=== PATIENT | female | born 1970 | race Two or more races ===

== ENCOUNTER 2018-02-04 05:36 | Inpatient (IN) | payer OTHER ==
[~2018-02-04] VITALS: Ht 160 cm; Wt 81.6 kg
[~2018-02-04 05:36] MED LIST: ADVAIR 5001 DISK W/1 IH; ASMANEX110 MCG IH; BREO ELLIPTA I1 EACH; LEVAQUIN750 MG PO; SINGULAIR10 MG PO; SYMBICORT 16010.2 GM; SYMBICORT 16010.2 GM PO; TUDORZA PRESS400 MCG; TUSSIN15 MG/5 M1; XOPENEX HFA15 GM IH; XOPENEX0.63 MG/3 IH
[2018-02-08] MEDS ORDERED: TUDORZA PRESS400 MCG IH (19:52)
[2018-02-08] MEDS ORDERED: MEDROLPACK PO (19:52)
[2018-02-08] MEDS ORDERED: BREO ELLIPTA I1 EACH IH (19:52)
== END 2018-02-08 20:14 | DRG 203 ==
LOC: ER 05:36 → MEDI 18:47 → SEC-K 18:47 → MEDI 02-05 01:02
PROC: 4A033R1 Measurement of Arterial Saturation, Peripheral, Percutaneous Approach (ICD-10-PCS; principal; 2018-02-04)
PROC: 3E0F7GC Introduction of Other Therapeutic Substance into Respiratory Tract, Via Natural or Artificial Opening (ICD-10-PCS; 2018-02-04)
DX: J45.41 Moderate persistent asthma with (acute) exacerbation (principal); J20.9 Acute bronchitis, unspecified

== ENCOUNTER 2018-07-26 11:32 | Inpatient (IN) | payer OTHER ==
[~2018-07-26] VITALS: Ht 160 cm; Wt 81.6 kg
[~2018-07-26 11:32] MED LIST changes: +BREO ELLIPTA I1 EACH IH; +MEDROLPACK PO; +TUDORZA PRESS400 MCG IH
[2018-07-30] MEDS ORDERED: TUDORZA PRESS400 MCG IH ×2 (17:30)
[2018-07-30] MEDS ORDERED: ALBUTEROL0.63 MG/3 IH (17:30)
[2018-07-30] MEDS ORDERED: SINGULAIR 10MG10 MG PO (17:30)
[2018-07-30] MEDS ORDERED: IPRAT-ALBUT 0.5-3 ML IH (17:30)
[2018-07-30] MEDS ORDERED: XOPENEX0.63 MG/3 IH (17:30)
[2018-07-30] MEDS ORDERED: BREO ELLIPTA 21 EACH IH (17:30)
[2018-07-30] MEDS ORDERED: BREO ELLIPTA I1 EACH IH (17:30)
== END 2018-07-30 17:53 | disposition home or self-care (01) | DRG 203 ==
LOC: ER 11:32 → MEDJ 18:47 → SEC-K 18:47 → MEDJ 07-27 06:40
PROC: 4A033R1 Measurement of Arterial Saturation, Peripheral, Percutaneous Approach (ICD-10-PCS; principal; 2018-07-26)
PROC: 3E0F7GC Introduction of Other Therapeutic Substance into Respiratory Tract, Via Natural or Artificial Opening (ICD-10-PCS; 2018-07-26)
DX: J45.52 Severe persistent asthma with status asthmaticus (principal); E87.6 Hypokalemia; J20.9 Acute bronchitis, unspecified; E09.65 Drug or chemical induced diabetes mellitus with hyperglycemia; T38.0X5A Adverse effect of glucocorticoids and synthetic analogues, initial encounter

== ENCOUNTER 2019-03-03 07:33 | Inpatient (IN) | payer OTHER ==
[~2019-03-03] VITALS: Ht 91.4 cm; Wt 5.0 kg
[~2019-03-03 07:33] MED LIST changes: +ALBUTEROL0.63 MG/3 IH; +BREO ELLIPTA 21 EACH IH; +IPRAT-ALBUT 0.5-3 ML IH; +SINGULAIR 10MG10 MG PO
[2019-03-03] MEDS ORDERED: TRELEGY ELLIPT1 EACH (08:04)
[2019-03-05] MEDS ORDERED: XOPENEX HFA15 GM IH (12:12)
[2019-03-05] MEDS ORDERED: ZITHROMAX TRI-500 MG PO (12:13)
[2019-03-05] MEDS ORDERED: TRELEGY ELLIPT1 EACH IH (12:14)
== END 2019-03-05 13:09 | disposition home or self-care (01) | DRG 203 ==
LOC: ER 07:33 → MEDI 18:14 → MEDJ 18:14 → MEDI 03-05 13:09
PROVIDERS: ADMIT Student in an Organized Health Care Education/Training Program
PROC: 4A033R1 Measurement of Arterial Saturation, Peripheral, Percutaneous Approach (ICD-10-PCS; principal; 2019-03-03)
PROC: 3E0F7GC Introduction of Other Therapeutic Substance into Respiratory Tract, Via Natural or Artificial Opening (ICD-10-PCS; 2019-03-03)
DX: J45.51 Severe persistent asthma with (acute) exacerbation (principal); J45.52 Severe persistent asthma with status asthmaticus

== ENCOUNTER 2019-07-29 07:04 | Inpatient (IN) | payer OTHER ==
[~2019-07-29] VITALS: Ht 162.6 cm; Wt 72.6 kg
[~2019-07-29 07:04] MED LIST changes: +TRELEGY ELLIPT1 EACH; +TRELEGY ELLIPT1 EACH IH; +ZITHROMAX TRI-500 MG PO
--- NOTE | 2019-07-29 07:14 | NUR ---
SE RECIBE PTE ALERTA Y ORIENTADA [id number] TENER ASMA LE COMENZO EN LA MANANA DE HOY ,ESTA RESPIRANDO CON DIFICULTAD .
--- NOTE | 2019-07-29 07:54 | NUR ---
MRS PRITCHARD ORIENTA A PT SOBRE ORDENES MEDICAS LA CUAL REFIERE ENTENDER. LE COLECTA MUESTRAS Y LA CANALIZA BAJO MEDIDAS ASEPTICAS. LE ADMINISTRA MEDICAMENTOS EARNESTINE ORDEN PT TOLERA. SE NOTIFICA ABG Y TERAPIAS A PERSONAL DE TERAPIA RESPIRATORIA.
[2019-08-01] MEDS ORDERED: MEDROLPACK PO (08:53)
== END 2019-08-01 10:39 | disposition home or self-care (01) | DRG 203 ==
LOC: ER 07:04 → MEDJ 13:22
PROVIDERS: ADMIT Student in an Organized Health Care Education/Training Program
PROC: 3E0F7GC Introduction of Other Therapeutic Substance into Respiratory Tract, Via Natural or Artificial Opening (ICD-10-PCS; principal; 2019-07-29)
PROC: 4A033R1 Measurement of Arterial Saturation, Peripheral, Percutaneous Approach (ICD-10-PCS; 2019-07-29)
DX: J45.52 Severe persistent asthma with status asthmaticus (principal)

== ENCOUNTER 2020-03-15 17:04 | Emergency (ER) | payer OTHER ==
[~2020-03-15] VITALS: Ht 160 cm; Wt 83.9 kg
== END 2020-03-15 19:58 | disposition home or self-care (01) ==
LOC: ER 17:04
DX: B34.9 Viral infection, unspecified (principal)

== ENCOUNTER 2020-05-23 12:39 | Inpatient (IN) | payer OTHER ==
[~2020-05-23] VITALS: Ht 99.1 cm; Wt 86.2 kg
[2020-05-23] MEDS ORDERED: [UNRECOGNIZED DRUG - OTHER] (13:30)
--- NOTE | 2020-05-23 13:31 | NUR ---
SE RECIBE PTE. FEMENINA ALERTA CONCIENTE Y ORIENTADA QUE REFIERE ATAQUE DE ASMA. SE PASA A AREA DE ASMA. TRANG. SAM EVALUA Y OSCULTA PTE.
--- NOTE | 2020-05-23 14:21 | NUR ---
PACIENTE ALERTA Y ORIENTADA EN ALESSIO SATHYA ESFERAS. SE ORIENTA A PACIENTE SOBRE PROCEDIMIENTO Y TX, REFIERE ENTENDER. SE EXTRAE MUESTRAS DE LABORATORIO CON MEDIDAS ASEPTICAS Y SE ADMINISTRA MEDICAMENTOS EARNESTINE ORDEN MEDICA. SE NOTIFICA A PERSONAL DE TERAPIA RESPIRATORIA, MS. JIMENEZ
--- NOTE | 2020-05-23 16:24 | NUR ---
SE RECIB PTE ALERTA Y ORIENTADA X 3 ESFERAS EN LA UNIDAD DE ASMA. H/L FLY DE EDEMA Y ERITEMA. SE ORIENTA A PTE SOBRE TX MEDICO. PTE REFIERE COMPRENDER. SE COLECTAN MUESTRAS DE LABORATORIO BAJO MEDIDAS ASEPTICAS. PENDIENTE RE-EVALUACION MEDICA.
--- NOTE | 2020-05-24 01:47 | NUR ---
PATIENT FROM PREVIOUS SHIFT ALERT AND ORIENTED X3 WITH SIGNSS OF DISTRESS. BED RAILS ELEVATED AND HEADREST AT 30 DEGREE, CATHETER IV FREE OF EDEMA AND ERYTHEMA IN SALINE LOCK. STABLE PATIENT UNDERS CONTINUOUS OBSERVATION.
--- NOTE | 2020-05-24 07:41 | NUR ---
PACIENTE ALERTA Y ORIENTADA POR SATHYA ESFERAS EN SOPHIA. SE OBSERVA IVF'S PATTENTE FLY DE EDEMA Y ENROJECIMIENTO. PACIENTE CON BUEN PATRON RESPIRATORIO. PENDIENTE CONSULTA CON DR. CUEVA.
== END 2020-05-26 11:28 | disposition home or self-care (01) | DRG 203 ==
LOC: ER 12:39 → MEDJ 05-24 08:00
PROVIDERS: ADMIT Internal Medicine; ATTEND Internal Medicine
PROC: 3E0F7GC Introduction of Other Therapeutic Substance into Respiratory Tract, Via Natural or Artificial Opening (ICD-10-PCS; principal; 2020-05-24)
DX: J45.52 Severe persistent asthma with status asthmaticus (principal); J06.9 Acute upper respiratory infection, unspecified

== ENCOUNTER 2020-11-08 12:57 | Inpatient (IN) | payer OTHER ==
[~2020-11-08] VITALS: Ht 160 cm; Wt 81.6 kg
[~2020-11-08 12:57] MED LIST changes: +[UNRECOGNIZED DRUG - OTHER]
== END 2020-11-14 12:17 | disposition home or self-care (01) | DRG 203 ==
LOC: ER 12:57 → ICU-2 18:05 → MEDI 11-10 14:25 → SEC-K 11-10 19:50 → MEDI 11-10 19:51 → MEDJ 11-12 22:22
PROVIDERS: ADMIT Internal Medicine; ATTEND Internal Medicine
PROC: 4A033R1 Measurement of Arterial Saturation, Peripheral, Percutaneous Approach (ICD-10-PCS; principal; 2020-11-08)
PROC: 3E0F7SF Introduction of Other Gas into Respiratory Tract, Via Natural or Artificial Opening (ICD-10-PCS; 2020-11-08)
PROC: 3E0F7GC Introduction of Other Therapeutic Substance into Respiratory Tract, Via Natural or Artificial Opening (ICD-10-PCS; 2020-11-08)
PROC: 4A12X4Z Monitoring of Cardiac Electrical Activity, External Approach (ICD-10-PCS; 2020-11-10)
DX: J45.52 Severe persistent asthma with status asthmaticus (principal); R09.02 Hypoxemia; R06.89 Other abnormalities of breathing; Z20.828 Contact with and (suspected) exposure to other viral communicable diseases

== ENCOUNTER 2021-06-20 06:40 | Emergency (ER) | payer OTHER ==
[~2021-06-20] VITALS: Ht 160 cm; Wt 81.6 kg
== END 2021-06-20 15:19 | disposition home or self-care (01) ==
LOC: ER 06:40
DX: J45.902 Unspecified asthma with status asthmaticus (principal)

== ENCOUNTER 2021-10-10 07:51 | Emergency (ER) | payer OTHER ==
[~2021-10-10] VITALS: Ht 160 cm; Wt 79.4 kg
[2021-10-10] MEDS ORDERED: MEDROLPACK (08:26)
== END 2021-10-10 13:10 | disposition home or self-care (01) ==
LOC: ER 07:51
DX: J06.9 Acute upper respiratory infection, unspecified (principal); Z03.818 Encounter for observation for suspected exposure to other biological agents ruled out

== ENCOUNTER 2022-02-21 07:28 | Emergency (ER) | payer OTHER ==
[~2022-02-21] VITALS: Ht 160 cm; Wt 79.4 kg
[~2022-02-21 07:28] MED LIST changes: +MEDROLPACK
[2022-02-21] MEDS ORDERED: KENALOG100 GM (07:38)
== END 2022-02-21 11:17 | disposition home or self-care (01) ==
LOC: ER 07:28
DX: J45.51 Severe persistent asthma with (acute) exacerbation (principal); Z20.822 Contact with and (suspected) exposure to COVID-19

== ENCOUNTER 2022-06-04 14:06 | Emergency (ER) | payer OTHER ==
[~2022-06-04] VITALS: Ht 160 cm; Wt 77.1 kg
[~2022-06-04 14:06] MED LIST changes: +KENALOG100 GM
[2022-06-04] MEDS ORDERED: IPRAT-ALBUT 0.5-3 ML IH (23:13)
[2022-06-04] MEDS ORDERED: MEDROLPACK PO (23:13)
[2022-06-04] MEDS ORDERED: TUSICOF LIQUID120 ML PO (23:13)
[2022-06-04] MEDS ORDERED: ZITHROMAX500 MG PO (23:14)
== END 2022-06-04 23:48 | disposition home or self-care (01) ==
LOC: ER 14:06
DX: J45.901 Unspecified asthma with (acute) exacerbation (principal); Z20.822 Contact with and (suspected) exposure to COVID-19

== ENCOUNTER 2022-09-02 07:51 | Emergency (ER) | payer OTHER ==
[~2022-09-02] VITALS: Ht 160 cm; Wt 79.8 kg
[~2022-09-02 07:51] MED LIST changes: +TUSICOF LIQUID120 ML PO; +ZITHROMAX500 MG PO
== END 2022-09-02 12:40 | disposition home or self-care (01) ==
LOC: ER 07:51
DX: J45.901 Unspecified asthma with (acute) exacerbation (principal); Z20.822 Contact with and (suspected) exposure to COVID-19

== ENCOUNTER 2023-05-03 14:47 | Inpatient (IN) | payer OTHER ==
[~2023-05-03] VITALS: Ht 160 cm; Wt 81.6 kg
[2023-05-03] MEDS ORDERED: SINGULAIR10 MG PO (15:23)
--- NOTE | 2023-05-03 15:23 | NUR ---
PTE SE OBSERVA A/O X4. PTE VERBALIZA QUE DESDE HOY LLEVA CON ASMA Y SE OBSERVA CON SIBILANCIA AL AUSCULTAR PULMONES.
--- NOTE | 2023-05-03 16:39 | NUR ---
PTE EVALUADO POR DR. MONTGOMERY SE EJECUTA ORDEN MEDICA Y SE RUPAL MUESTRA BAJO MEDIDAS ASEPTICAS, SE ORIENTA PTE REFIERE ENTENDER
--- NOTE | 2023-05-03 19:08 | NUR ---
SE NOTIFICA TERAPIAS RESPIRATORIAS Y PEAK FLOW A BROOKS.
[2023-05-09] MEDS ORDERED: XOPENEX0.63 MG/3 IH (17:02)
[2023-05-09] MEDS ORDERED: MEDROLPACK PO (17:02)
== END 2023-05-09 17:14 | disposition home or self-care (01) | DRG 202 ==
LOC: ER 14:47 → MEDI 20:36 → ICU-2 20:36 → MEDJ 05-04 10:28 → MEDI 05-04 10:57
PROVIDERS: ADMIT Internal Medicine; ATTEND Internal Medicine
PROC: BW24ZZZ Computerized Tomography (CT Scan) of Chest and Abdomen (ICD-10-PCS; principal; 2023-05-03)
PROC: 3E0F7GC Introduction of Other Therapeutic Substance into Respiratory Tract, Via Natural or Artificial Opening (ICD-10-PCS; 2023-05-03)
DX: J45.901 Unspecified asthma with (acute) exacerbation (principal); E87.20 Acidosis, unspecified; N39.0 Urinary tract infection, site not specified; J06.9 Acute upper respiratory infection, unspecified; R09.02 Hypoxemia; J45.52 Severe persistent asthma with status asthmaticus; B96.89 Other specified bacterial agents as the cause of diseases classified elsewhere

== ENCOUNTER 2024-01-28 07:29 | Emergency (ER) | payer OTHER ==
[~2024-01-28] VITALS: Ht 160 cm; Wt 81.6 kg
[2024-01-28] MEDS ORDERED: METHYLPREDNISOLONE SOD SUCC 125 MG VIAL IV STA (08:48)
[2024-01-28] MEDS ORDERED: HYDROCODONE/CHLORPHEN P-STIREX 5 ML ML PO STA (08:49)
[2024-01-28] MEDS ORDERED: LEVALBUTEROL HCL 1.25 MG/3 ML SOLUTION IH SCH (09:00)
[2024-01-28 09:40] LABS: HEMOGLOBIN 14.2 g/dL (12.0-15.00); MEAN CELL VOLUME 88.2 fL (80.00-100.00); MEAN CORPUSCULAR HEMOGLOBIN 29.8 pg (27.00-32.0); MEAN CORPUSCULAR HGB CONC 33.8 g/dl (32.0-36.0); PLATELET COUNT 388 K/uL (150-450); RED BLOOD COUNT 4.77 M/uL (4.00-6.00); RED CELL DISTRIBUTION WIDTH 14.3 % (11.5-14.5)
== END 2024-01-28 11:29 | disposition home or self-care (01) ==
LOC: ER 07:29
PROVIDERS: General Practice
DX: J45.901 Unspecified asthma with (acute) exacerbation (principal)

== ENCOUNTER 2024-08-30 05:50 | Emergency (ER) | payer OTHER ==
[~2024-08-30] VITALS: Ht 160 cm; Wt 79.8 kg
[2024-08-30] MEDS ORDERED: ROSUVASTATIN CAL5 MG PO (06:37)
[2024-08-30] MEDS ORDERED: INDERAL XL80 MG PO (06:37)
[2024-08-30] MEDS ORDERED: METHYLPREDNISOLONE SOD SUCC 125 MG VIAL IV STA (07:30)
[2024-08-30] MEDS ORDERED: ALBUTEROL SULFATE 3 ML/2.5 MG AMPUL.NEB IH SCH (07:45)
[2024-08-30 08:01] LABS: HEMATOCRIT 38.6 % (36.0-45.00); MEAN CELL VOLUME 87.4 fL (80.00-100.00); MEAN CORPUSCULAR HEMOGLOBIN 29.4 pg (27.00-32.0); MEAN CORPUSCULAR HGB CONC 33.6 g/dl (32.0-36.0); PLATELET COUNT 320 K/uL (150-450); RED BLOOD COUNT 4.42 M/uL (4.00-6.00); RED CELL DISTRIBUTION WIDTH 15.2 % (11.5-14.5)
[2024-08-30 08:16] LABS: URINE APPEARANCE Clear; URINE BILIRRUBIN Negative (NEGATIVE); URINE BLOOD Negative; URINE COLOR Yellow; URINE GLUCOSE Negative (NEGATIVE); URINE KETONE Negative (NEGATIVE); URINE LEUKOCYTE Large; URINE NITRATE Positive; URINE PROTEIN Negative (NEGATIVE); URINE UROBILINOGEN 0.2 E.U./dl
[2024-08-30 08:19] LABS: URINE EPITHELIAL CELLS 7.2 uL (0.0-38.8); URINE RBC 3.2 uL (0.0-20.8); URINE WBC 170.8 uL (0.0-23.2)
[2024-08-30 08:27] LABS: ALBUMIN 3.4 gm/dL (3.4-5.0); BILIRUBIN TOTAL 0.42 mg/dL (0.3-1.2); CALCIUM 9.4 mg/dL (8.5-10.1); CREATININE SERUM 0.65 mg/dL (0.55-1.02); GFR 94.63; GLOBULINA 3.8 G/DL (2.4-3.5); POTASSIUM 4.35 mEq/L (3.5-5.1); TOTAL PROTEIN 7.2 gm/dL (6.4-8.2)
[2024-08-30 08:57] LABS: URINE BACTERIA > 9821.5 uL (0.0-1933); URINE CAST 0.45 uL (0.0-1.40)
[2024-08-30] MEDS ORDERED: MAGNESIUM SULFATE IN WATER 4 GM/100 ML PIGGYBACK IV STA (09:09)
== END 2024-08-30 12:20 | disposition home or self-care (01) ==
LOC: ER 05:52
PROVIDERS: General Practice
DX: J45.901 Unspecified asthma with (acute) exacerbation (principal); N39.0 Urinary tract infection, site not specified; I10 Essential (primary) hypertension; E05.80 Other thyrotoxicosis without thyrotoxic crisis or storm

== ENCOUNTER 2025-05-03 06:42 | Emergency (ER) | payer OTHER ==
[~2025-05-03] VITALS: Ht 160 cm; Wt 83.9 kg
[~2025-05-03 06:42] MED LIST changes: +INDERAL XL80 MG PO; +ROSUVASTATIN CAL5 MG PO
[2025-05-03] MEDS ORDERED: TAPAZOLE5 MG PO (06:52)
[2025-05-03] MEDS ORDERED: METHYLPREDNISOLONE SOD SUCC 125 MG VIAL IV STA (07:13)
[2025-05-03] MEDS ORDERED: LEVALBUTEROL HCL 0.63 MG/3 ML SOLUTION IH SCH (07:15)
[2025-05-03] MEDS ORDERED: METHYLPREDNISOLONE SOD SUCC 125 MG VIAL ONE (07:27)
[2025-05-03] MEDS ORDERED: LEVALBUTEROL HCL 0.63 MG/3 ML SOLUTION IH ONE (07:45)
[2025-05-03 07:56] LABS: ABG PH 7.436 (7.35-7.45); ABG PO2 86.6 mmHg (80-100); ABG pCO2 35.7 mmHg (35-45); BASE EXCESS -0.2 mmol/l; BICARBONATE 23.5 mmol/l (23-25); SaO2 96.9 %; Tco2 24.6 mmol/l
[2025-05-03 07:57] LABS: BASO % 0.3 % (0.1-1.2); EOS # 0.22 (0.04-0.54); EOS % 3.2 % (0.7-7.0); HEMATOCRIT 39.4 % (34.1-44.9); HEMOGLOBIN 12.9 g/dL (11.2-15.7); LYMPH # 1.31 (1.18-3.74); LYMPH % 18.8 % (19.3-53.1); MEAN CORPUSCULAR HEMOGLOBIN 28.8 pg (25.6-32.2); MONO # 0.54 (0.24-0.82); MONO % 7.7 % (4.7-12.5); NEUT # 4.87 (1.56-6.13); NEUT % 69.7 % (34.0-71.1); PLATELET COUNT 323 K/uL (163-369); RED BLOOD COUNT 4.48 M/uL (3.93-5.22); RED CELL DISTRIBUTION WIDTH 13.7 % (11.6-14.4)
[2025-05-03 08:30] LABS: ALBUMIN 3.7 gm/dL (3.4-5.0); BILIRUBIN TOTAL 0.51 mg/dL (0.3-1.2); CALCIUM 9.4 mg/dL (8.5-10.1); CREATININE SERUM 0.72 mg/dL (0.55-1.02); GFR 83.79; GLOBULINA 3.4 G/DL (2.4-3.5); POTASSIUM 4.48 mEq/L (3.5-5.1); TOTAL PROTEIN 7.1 gm/dL (6.4-8.2)
[2025-05-03] MEDS ORDERED: IPRATROPIUM BROMIDE 0.5 MG/2.5 ML AMPUL.NEB IH ONE (11:21)
[2025-05-03] MEDS ORDERED: LEVALBUTEROL HCL 1.25 MG/3 ML SOLUTION IH ONE (11:21)
[2025-05-03 15:54] LABS: o2 21 %
[2025-05-03 15:55] LABS: allen test SATISFACTORY; mode ROOM AIR; puncture site RADIAL RIGHT
== END 2025-05-03 16:12 | disposition home or self-care (01) ==
LOC: ER 07:01
PROVIDERS: General Practice
DX: R06.02 Shortness of breath (principal); J45.909 Unspecified asthma, uncomplicated; E03.8 Other specified hypothyroidism

== ENCOUNTER 2025-09-14 05:47 | Inpatient (IN) | payer OTHER ==
[~2025-09-14] VITALS: Ht 160 cm; Wt 81.6 kg
[~2025-09-14 05:47] MED LIST changes: +TAPAZOLE5 MG PO
--- NOTE | 2025-09-14 05:57 | NUR ---
PACIENTE ALERTA Y ORIENTADA X3. REFIERE VENIR POR ATAQUE DE ASMA. SE ESTIMAN VITALES Y SE UBICA. PACIENTE AL MOMENTO DEL TRIAGE [place] EN ORACIONES COMPLETAS Y SATURANDO AL 97%.
[2025-09-14] MEDS ORDERED: METHYLPREDNISOLONE SOD SUCC 125 MG VIAL IV STA (06:23)
[2025-09-14] MEDS ORDERED: MAGNESIUM SULFATE 10,000 MG/20 ML VIAL IV STA (06:24)
[2025-09-14] MEDS ORDERED: LEVALBUTEROL HCL 0.63 MG/3 ML SOLUTION IH ONE ×2 (06:27→16:31)
[2025-09-14] MEDS ORDERED: LEVALBUTEROL HCL 0.63 MG/3 ML SOLUTION IH SCH ×2 (06:30→15:45)
[2025-09-14] MEDS ORDERED: METHYLPREDNISOLONE SOD SUCC 125 MG VIAL ONE (06:33)
[2025-09-14] MEDS ORDERED: MAGNESIUM SULFATE 50% 1,000 MG/2 ML VIAL ONE (06:50)
--- NOTE | 2025-09-14 06:50 | NUR ---
SE ORIENTA A PACIENTE SOBRE TX MEDICO, REFIERE ENTENDER. SE REALIZAN MUESTRAS DE LABORATORIO BAJO MEDIDAS ASEPTICAS. SE ADMINISTRAN MEDICAMENTOS EARNESTINE ORDEN MEDICA. SE NOTIFICA TERAPIA RESPIRATORIA A . PACIENTE MANEJADA POR .
[2025-09-14 06:53] LABS: BASO % 0.3 % (0.1-1.2); EOS # 0.20 (0.04-0.54); EOS % 2.8 % (0.7-7.0); LYMPH # 1.65 (1.18-3.74); LYMPH % 22.9 % (19.3-53.1); MEAN PLATELET VOLUME 9.50 fl (9.4-12.4); MONO # 0.59 (0.24-0.82); MONO % 8.2 % (4.7-12.5); NEUT # 4.70 (1.56-6.13); NEUT % 65.4 % (34.0-71.1); RED CELL DISTRIBUTION WIDTH 13.0 % (11.6-14.4)
[2025-09-14 07:26] LABS: ALT/SGPT 20.0 U/L (12-78); AST/SGOT 15.0 U/L (15-37); BILIRUBIN TOTAL 0.27 mg/dL (0.3-1.2); BUN CREA RATIO 31.0 (7.0-25.0); CREATININE SERUM 0.72 mg/dL (0.55-1.02); GFR 83.79; GLOBULINA 3.6 G/DL (2.4-3.5); GLUCOSE FASTING 93.0 mg/dL (65-100); OSMOLALITY SERUM 286.0 MOSM/KG (275-295)
[2025-09-14 08:36] LABS: URINE APPEARANCE Clear; URINE BILIRRUBIN Negative (NEGATIVE); URINE BLOOD NHT; URINE COLOR Yellow; URINE GLUCOSE Negative (NEGATIVE); URINE KETONE 15 (NEGATIVE); URINE LEUKOCYTE Trace; URINE NITRATE Negative; URINE PROTEIN Negative (NEGATIVE); URINE UROBILINOGEN 0.2 E.U./dl
[2025-09-14 08:37] LABS: URINE BACTERIA 44.3 uL (0.0-1933); URINE EPITHELIAL CELLS 7.2 uL (0.0-38.8); URINE RBC 13.7 uL (0.0-20.8); URINE WBC 8.6 uL (0.0-23.2)
[2025-09-14 08:40] LABS: URINE CAST 0.00 uL (0.0-1.40)
[2025-09-14] MEDS ORDERED: IPRATROPIUM BROMIDE 0.5 MG/2.5 ML AMPUL.NEB IH STA (15:34)
[2025-09-14] MEDS ORDERED: IPRATROPIUM BROMIDE 0.5 MG/2.5 ML AMPUL.NEB IH ONE ×2 (16:31→22:24)
[2025-09-14] MEDS ORDERED: METHYLPREDNISOLONE SOD SUCC 40 MG VIAL IV SCH (21:51)
[2025-09-14] MEDS ORDERED: IPRATROPIUM/ALBUTEROL SULFATE 3 ML AMPUL.NEB IH SCH (21:51)
[2025-09-14] MEDS ORDERED: LEVALBUTEROL HCL 1.25 MG/3 ML SOLUTION IH SCH (21:55)
[2025-09-14] MEDS ORDERED: IPRATROPIUM BROMIDE 0.5 MG/2.5 ML AMPUL.NEB IH SCH (21:55)
[2025-09-14] MEDS ORDERED: DEXTROSE 50 % IN WATER 0.5 G/ML DISP.SYRIN IV PRN (22:00)
[2025-09-14] MEDS ORDERED: INSULIN LISPRO 1,000 UNIT/10 ML UNITS SUBCUTANEO PRN (22:00)
[2025-09-14] MEDS ORDERED: 0.9 % SODIUM CHLORIDE 1,000 ML IV SCH (22:00)
[2025-09-14] MEDS ORDERED: MAGNESIUM SULFATE IN WATER 50 ML IV ONE (22:00)
[2025-09-14] MEDS ORDERED: LEVALBUTEROL HCL 1.25 MG/3 ML SOLUTION IH ONE (22:23)
[2025-09-15 01:41] VITALS: BP 178/94; O2SAT 96
[2025-09-15 02:44] VITALS: BP 136/86
[2025-09-15 09:05] VITALS: BP 129/78; O2SAT 98
[2025-09-15] MEDS ORDERED: hydrALAZINE HCL 20 MG VIAL IV PRN (11:00)
[2025-09-15] MEDS ORDERED: RINGERS SOLUTION,LACTATED 1,000 ML IV SCH (11:00)
[2025-09-15] MEDS ORDERED: levoFLOXacin IN DEXTROSE 5 % 150 ML IV NR (12:00)
[2025-09-15] MEDS ORDERED: ROSUVASTATIN CALCIUM 20 MG TABLET PO NR (12:00)
[2025-09-15] MEDS ORDERED: METHIMAZOLE 10 MG TABLET PO SCH (12:00)
[2025-09-15] MEDS ORDERED: MONTELUKAST SODIUM 10 MG TABLET PO NR (12:00)
[2025-09-15] MEDS ORDERED: LEVALBUTEROL HCL 1.25 MG/3 ML SOLUTION IH SCH (12:00)
[2025-09-15] MEDS ORDERED: DILTIAZEM HCL 120 MG CAP.SR.24H PO NR (12:00)
[2025-09-15 21:40] VITALS: BP 116/76
[2025-09-16 02:11] VITALS: BP 91/58; O2SAT 98
[2025-09-16] MEDS ORDERED: levoFLOXacin IN DEXTROSE 5 % 150 ML IV SCH (09:00)
[2025-09-16] MEDS ORDERED: DILTIAZEM HCL 120 MG CAP.SR.24H PO SCH (09:00)
[2025-09-16] MEDS ORDERED: ROSUVASTATIN CALCIUM 20 MG TABLET PO SCH (09:00)
[2025-09-16] MEDS ORDERED: MONTELUKAST SODIUM 10 MG TABLET PO SCH (09:00)
[2025-09-16 10:14] VITALS: BP 118/71; O2SAT 96
[2025-09-16] MEDS ORDERED: METHYLPREDNISOLONE SOD SUCC 40 MG VIAL IV SCH (17:00)
[2025-09-16] MEDS ORDERED: LORATADINE 10 MG TABLET PO SCH (17:00)
[2025-09-16] MEDS ORDERED: MOMETASONE FUROATE 17GM SPRAY NASAL SCH (17:00)
[2025-09-17 03:39] VITALS: BP 119/76; O2SAT 97
[2025-09-17 08:27] VITALS: BP 150/87
[2025-09-17] MEDS ORDERED: METHYLPREDNISOLONE SOD SUCC 40 MG VIAL IV SCH (09:00)
[2025-09-17] MEDS ORDERED: METHYLPREDNISOLONE ACETATE 80 MG/ML VIAL IM ONE (09:00)
[2025-09-17 16:47] VITALS: BP 126/80; O2SAT 99
[2025-09-18 01:55] VITALS: BP 120/75; O2SAT 97
[2025-09-18 09:42] VITALS: BP 110/68; O2SAT 96
== END 2025-09-18 13:40 | disposition home or self-care (01) | DRG 203 ==
LOC: ER 05:47 → MEDI 22:33
PROVIDERS: General Practice; ADMIT Internal Medicine; ATTEND Internal Medicine
PROC: BB24YZZ Computerized Tomography (CT Scan) of Bilateral Lungs using Other Contrast (ICD-10-PCS; principal; 2025-09-14)
PROC: 3E0F7GC Introduction of Other Therapeutic Substance into Respiratory Tract, Via Natural or Artificial Opening (ICD-10-PCS; 2025-09-14)
DX: J45.51 Severe persistent asthma with (acute) exacerbation (principal); R09.02 Hypoxemia

== ENCOUNTER 2025-10-15 06:42 | Inpatient (IN) | payer OTHER ==
[~2025-10-15] VITALS: Ht 152.4 cm; Wt 81.6 kg
[2025-10-15] MEDS ORDERED: KETOROLAC TROMETHAMINE 60 MG VIAL IM ONE ×2 (08:15→09:29)
[2025-10-15] MEDS ORDERED: FAMOtidine 10 MG/ML (4ML VIAL) IV PUSH ONE (08:15)
[2025-10-15] MEDS ORDERED: FAMOTIDINE/PF 20 MG/2 ML VIAL ONE (09:29)
[2025-10-15] MEDS ORDERED: LEVALBUTEROL HCL 1.25 MG/3 ML SOLUTION IH SCH (09:42)
[2025-10-15] MEDS ORDERED: SODIUM CHLORIDE 0.45 % 1,000 ML IV SCH (09:45)
[2025-10-15] MEDS ORDERED: BUDESONIDE 0.5 MG/2 ML AMPUL.NEB IH SCH (09:47)
[2025-10-15] MEDS ORDERED: PANTOPRAZOLE SODIUM 40 MG/VIAL VIAL IV PUSH SCH (09:47)
[2025-10-15] MEDS ORDERED: CARVEDILOL 3.125 MG TABLET PO SCH (09:50)
[2025-10-15] MEDS ORDERED: METHIMAZOLE 10 MG TABLET PO SCH (09:51)
[2025-10-15] MEDS ORDERED: MONTELUKAST SODIUM 10 MG TABLET PO SCH (09:52)
[2025-10-15] MEDS ORDERED: ROSUVASTATIN CALCIUM 20 MG TABLET PO SCH (09:52)
[2025-10-15] MEDS ORDERED: METHYLPREDNISOLONE SOD SUCC 40 MG VIAL IV SCH (09:54)
[2025-10-15] MEDS ORDERED: ACETAMINOPHEN 500 MG GEL..CAP PO PRN (10:00)
--- NOTE | 2025-10-15 10:11 | NUR ---
PACIENTE ALERTA Y ORIENTADA X3. C/C DOLOR DE PECHO. PACIENTE EVALUADA POR MEDICO. SE MIDEN SIGNOS VITALES. SE ORIENTA ACERCA DE PROCEDIMIENTOS Y MEDICAMENTOS. PACIENTE REFIERE ENTENDER. SE COLECTAN MUESTRAS DE LABORATORIO BAJO MEDIDAS ASEPTICAS. SE ADMINISTRAN MEDICAMENTOS EARNESTINE PRESCRITOS. PENDIENTE REEVALUACION.
[2025-10-15 10:54] LABS: BASO % 0.4 % (0.1-1.2); EOS # 0.08 (0.04-0.54); EOS % 1.1 % (0.7-7.0); LYMPH # 1.52 (1.18-3.74); LYMPH % 20.6 % (19.3-53.1); MEAN PLATELET VOLUME 9.70 fl (9.4-12.4); MONO # 0.64 (0.24-0.82); MONO % 8.7 % (4.7-12.5); NEUT # 4.99 (1.56-6.13); NEUT % 67.7 % (34.0-71.1); RED CELL DISTRIBUTION WIDTH 14.5 % (11.6-14.4)
[2025-10-15] MEDS ORDERED: METHYLPREDNISOLONE SOD SUCC 40 MG VIAL ONE (11:56)
[2025-10-15] MEDS ORDERED: METHIMAZOLE 5 MG TABLET PO SCH (12:00)
[2025-10-15 12:02] LABS: ALT/SGPT 27.0 U/L (12-78); AST/SGOT 14.0 U/L (15-37); BILIRUBIN TOTAL 0.38 mg/dL (0.3-1.2); BUN CREA RATIO 36.0 (7.0-25.0); CREATININE SERUM 0.58 mg/dL (0.55-1.02); GFR 107.15; GLOBULINA 3.4 G/DL (2.4-3.5); GLUCOSE FASTING 110.0 mg/dL (65-100); OSMOLALITY SERUM 287.0 MOSM/KG (275-295); TSH 3.85 uIU/mL (0.358-3.74)
[2025-10-15] MEDS ORDERED: IPRATROPIUM/ALBUTEROL SULFATE 3 ML AMPUL.NEB IH SCH (13:00)
[2025-10-15] MEDS ORDERED: LORATADINE 10 MG TABLET PO SCH (17:00)
[2025-10-15] MEDS ORDERED: FLUTICASONE PROPIONATE 50 MCG SPRAY NASAL SCH (17:00)
[2025-10-15 17:05] VITALS: BP 135/84; O2SAT 99
[2025-10-15] MEDS ORDERED: CLONAZEPAM 0.5 MG TABLET PO SCH (21:00)
[2025-10-16 01:45] VITALS: BP 114/69; O2SAT 98
[2025-10-16 08:44] VITALS: BP 120/78; O2SAT 99
[2025-10-16] MEDS ORDERED: METHIMAZOLE 5 MG TABLET PO SCH (09:00)
[2025-10-16] MEDS ORDERED: ONDANSETRON HCL 2 MG/ML VIAL IV PRN (11:45)
[2025-10-16] MEDS ORDERED: CEFAZOLIN SODIUM 1,000 MG VIAL IV SCH (12:00)
[2025-10-16] MEDS ORDERED: OxyCODONE HCL 5 MG TABLET (ROXICODONE) PO PRN (12:00)
[2025-10-16] MEDS ORDERED: MORPHINE SULFATE 4 MG/ML VIAL IV SCH (12:00)
[2025-10-16] MEDS ORDERED: VANCOMYCIN HCL 1,000 MG VIAL ONE (12:37)
[2025-10-16] MEDS ORDERED: CEFAZOLIN SODIUM 1,000 MG VIAL ONE (16:07)
[2025-10-16 20:35] VITALS: BP 143/80; O2SAT 99
[2025-10-16] MEDS ORDERED: GABAPENTIN 100 MG CAPSULE PO SCH (21:00)
[2025-10-16] MEDS ORDERED: ORPHENADRINE CITRATE 100 MG TABLET PO SCH (21:00)
[2025-10-17 02:47] VITALS: BP 115/73; O2SAT 99
[2025-10-17 07:36] LABS: BASO % 0.2 % (0.1-1.2); EOS # 0.00 (0.04-0.54); EOS % 0.0 % (0.7-7.0); LYMPH # 1.09 (1.18-3.74); LYMPH % 10.1 % (19.3-53.1); MEAN PLATELET VOLUME 9.80 fl (9.4-12.4); MONO # 1.05 (0.24-0.82); MONO % 9.7 % (4.7-12.5); NEUT # 8.55 (1.56-6.13); NEUT % 79.4 % (34.0-71.1); RED CELL DISTRIBUTION WIDTH 14.5 % (11.6-14.4)
[2025-10-17] MEDS ORDERED: ENOXAPARIN SODIUM 30 MG/0.3 ML SYRINGE SUBCUTANEO SCH (09:00)
[2025-10-17 09:14] VITALS: BP 122/76; O2SAT 98
[2025-10-17 17:44] VITALS: BP 96/65
[2025-10-17 18:02] VITALS: BP 115/63
[2025-10-18 00:45] VITALS: BP 130/82; O2SAT 97
[2025-10-18 04:52] LABS: BASO % 0.1 % (0.1-1.2); EOS # 0.00 (0.04-0.54); EOS % 0.0 % (0.7-7.0); LYMPH # 0.91 (1.18-3.74); LYMPH % 8.6 % (19.3-53.1); MEAN PLATELET VOLUME 9.80 fl (9.4-12.4); MONO # 1.12 (0.24-0.82); MONO % 10.6 % (4.7-12.5); NEUT # 8.39 (1.56-6.13); NEUT % 79.8 % (34.0-71.1); RED CELL DISTRIBUTION WIDTH 14.5 % (11.6-14.4)
[2025-10-18] MEDS ORDERED: METHIMAZOLE 5 MG TABLET PO SCH (09:00)
[2025-10-18 09:13] VITALS: BP 142/85; O2SAT 98
[2025-10-18] MEDS ORDERED: ROSUVASTATIN CA20 MG PO (12:03)
[2025-10-18] MEDS ORDERED: GABAPENTIN100 MG PO (12:04)
[2025-10-18] MEDS ORDERED: CARVEDILOL3.125 MG PO (12:04)
[2025-10-18] MEDS ORDERED: MONTELUKAST SOD10 MG PO (12:05)
[2025-10-18] MEDS ORDERED: ELIQUIS2.5 MG PO (12:09)
[2025-10-18] MEDS ORDERED: NAPROXEN250 MG PO (12:11)
[2025-10-18] MEDS ORDERED: TAMS0.4C PO (12:12)
[2025-10-18] MEDS ORDERED: PROTONIX40 M1 PO (12:13)
[2025-10-18] MEDS ORDERED: OxyCODONE HCL 5 MG TABLET (ROXICODONE) PO PRN (13:30)
[2025-10-18 16:43] LABS: COVID-19 AG NEGATIVE (NEGATIVE)
[2025-10-18 17:03] VITALS: BP 120/69
== END 2025-10-18 18:37 | DRG 470 ==
LOC: ER 06:43 → MEDI 11:10
PROVIDERS: General Practice; Orthopaedic Surgery; ADMIT Internal Medicine; ATTEND Internal Medicine
PROC: 3E0F7GC Introduction of Other Therapeutic Substance into Respiratory Tract, Via Natural or Artificial Opening (ICD-10-PCS; 2025-10-15)
PROC: 0QUF0JZ Supplement Left Patella with Synthetic Substitute, Open Approach (ICD-10-PCS; 2025-10-16)
PROC: 0SRD0JZ Replacement of Left Knee Joint with Synthetic Substitute, Open Approach (ICD-10-PCS; principal; 2025-10-16 12:30)
DX: M17.12 Unilateral primary osteoarthritis, left knee (principal); J45.901 Unspecified asthma with (acute) exacerbation; J45.52 Severe persistent asthma with status asthmaticus; M85.662 Other cyst of bone, left lower leg; Z96.652 Presence of left artificial knee joint; I11.9 Hypertensive heart disease without heart failure